=== PATIENT | male | born 1980 | race Caucasian/White ===

== ENCOUNTER 2019-04-05 10:03 | Day surgery (SDC) | payer OTHER ==
[2019-04-05 10:33] VITALS: BMI 30.2
[2019-04-05] MEDS ORDERED: BACITRACIN 15 GM TUBE TOPICAL OINTMENT ONE (10:55)
[2019-04-05] MEDS ORDERED: PROPOFOL 20 ML ONE (11:15)
[2019-04-05] MEDS ORDERED: MIDAZOLAM HCL 2 MG/2 ML SINGLE DOSE VIAL ONE (11:16)
[2019-04-05] MEDS ORDERED: ACETAMINOPHEN 1000 MG/100 ML VIAL (NON FORMULARY) IVPB ONE (11:19)
[2019-04-05] MEDS ORDERED: DEXTROSE 5%-0.45% SALINE 1,000 ML IV SCH (11:30)
[2019-04-05] MEDS ORDERED: IBUPROFEN 800 MG/8 ML IJ IVPB SCH (11:30)
[2019-04-05] MEDS ORDERED: DEXAMETHASONE SOD PHOSPHATE 4 MG/1 ML VIAL ONE (11:40)
[2019-04-05] MEDS ORDERED: CLINDAMYCIN PHOSPHATE 600 MG/4 ML VIAL IVPB ONE (11:43)
[2019-04-05] MEDS ORDERED: CLINDAMYCIN PHOSPHATE 600 MG/4 ML VIAL ONE (11:43)
[2019-04-05] MEDS ORDERED: BUPIVACAINE HCL/PF 0.5% (5MG/ML) 10 ML VIAL IJ ONE (11:46)
[2019-04-05] MEDS ORDERED: KETOROLAC TROMETHAMINE 30 MG/1 ML VIAL ONE (11:52)
[2019-04-05] MEDS ORDERED: oxyCODONE HCL 5 MG TABLET PO PRN (12:21)
[2019-04-05] MEDS ORDERED: ONDANSETRON 4 MG/2 ML VIAL IVPUSH PRN (12:21)
[2019-04-05] MEDS ORDERED: ACETAMINOPHEN 325 MG TABLET (FP) PO PRN (12:21)
[2019-04-05] MEDS ORDERED: LACTATED RINGERS SOLUTION 1,000 ML IV SCH (12:30)
--- NOTE | 2019-04-05 13:33 | OP ---
DATE OF OPERATION: 04/05/2019 PREOPERATIVE DIAGNOSIS: Phimosis and tight frenulum. POSTOPERATIVE DIAGNOSIS: Phimosis and tight frenulum. PROCEDURE: Circumcision revision and frenulotomy. SURGEON: Sherman Traore MD ESTIMATED BLOOD LOSS: Minimal. SPECIMEN: Foreskin. PREOPERATIVE INDICATIONS: Patient is a 38-year-old male who comes in with complaints of an incomplete circumcision from . He has excess skin over the head of the penis. He also has a tight frenulum, which tears during intercourse. He comes to the ER today for repair. OPERATION: The patient was brought to the OR. Placed on the table in the supine position. Given general anesthesia and IV antibiotics. The groin was prepped and draped sterilely. Time-out was performed. A mixture of Marcaine and lidocaine were injected in a ring block. The foreskin was then marked out with a marking pen. The frenulum was divided and ligated. Then a sleeve circumcision was performed. The tissue was sent off for pathological diagnosis. The free ends were then re-opposed after cartilage the bleeding with 4-0 chromic in an interrupted circumferential pattern. The wound was then dressed. The patient was woken up. Ariela [id number]
[2019-04-05 14:06] VITALS: TEMP 98.2
[2019-04-05 15:08] VITALS: BP 110/70; PULSE 78
--- NOTE | 2019-04-06 15:50 | PATH ---
Surgical Pathology Report Patient Name: ELÍAS RAMIREZ [facility]. Rec. #: [id number] /Age/Gender: 1980 (Age: 38) / M Account: [id number] Location: [facility] SURGICAL Taken: 04/05/2019 Received: 04/05/2019 Reported: 04/06/2019 Physicians: Sherman Traore M.D. Specimen(s) Received FORESKIN Clinical History Phimosis Final Diagnosis FORESKIN, CIRCUMCISION: GENITAL SKIN (FORESKIN) WITHOUT SIGNIFICANT PATHOLOGIC FINDINGS. Electronically Signed Kailee Roy M.D. Gross Description Received in formalin labeled "foreskin," is a 7.5 x 2.3 x 0.3 cm gao, irregular, wrinkled portion of skin, consistent with foreskin. Secondary Education Professor sections are submitted in one cassette. /04/05/201904/05/2019
== END 2019-04-05 15:00 | disposition home or self-care (01) ==
LOC: JASU-SURG 10:03
PROVIDERS: ATTEND Urology
PROC: 0VNT0ZZ Release Prepuce, Open Approach (ICD-10-PCS; 2019-04-05)
PROC: 0VTTXZZ Resection of Prepuce, External Approach (ICD-10-PCS; principal; 2019-04-05 12:00)
DX: N47.1 Phimosis (principal); N48.89 Other specified disorders of penis
CPT/HCPCS: 88304-TC; 94760